=== PATIENT | male | born 1995 | race Hispanic/Latino ===

== ENCOUNTER 2018-11-09 15:00 | Emergency (ER) | payer OTHER ==
[~2018-11-09] VITALS: Ht 165.1 cm; Wt 67.3 kg
[2018-11-09] MEDS ORDERED: NAPR-837 PO (16:02)
[2018-11-09] MEDS ORDERED: CYCL10TA PO (16:07)
[2018-11-09 16:08] VITALS: BP 126/63
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
== END 2018-11-09 16:23 | disposition home or self-care (01) ==
LOC: M ED 15:00
DX: S93.401A Sprain of unspecified ligament of right ankle, initial encounter (principal); X50.9XXA Other and unspecified overexertion or strenuous movements or postures, initial encounter; Y92.89 Other specified places as the place of occurrence of the external cause; Y93.66 Activity, soccer; M25.562 Pain in left knee; G89.29 Other chronic pain

== ENCOUNTER 2019-02-03 13:13 | Emergency (ER) | payer OTHER ==
[~2019-02-03] VITALS: Ht 165.1 cm; Wt 66.4 kg
[2019-02-03 13:13] VITALS: BP 134/56
[~2019-02-03 13:13] MED LIST: CYCL10TA PO; NAPR-837 PO
== END 2019-02-03 15:25 | disposition left against medical advice (07) ==
LOC: M ED 13:13
DX: Z53.29 Procedure and treatment not carried out because of patient's decision for other reasons (principal)

== ENCOUNTER 2019-03-12 08:10 | Emergency (ER) | payer OTHER ==
[~2019-03-12] VITALS: Ht 165.1 cm; Wt 66.4 kg
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
[2019-03-12 09:57] VITALS: BP 137/63
== END 2019-03-12 09:48 | disposition home or self-care (01) ==
LOC: M ED 08:10
DX: S92.355A Nondisplaced fracture of fifth metatarsal bone, left foot, initial encounter for closed fracture (principal); X50.1XXA Overexertion from prolonged static or awkward postures, initial encounter; Y92.89 Other specified places as the place of occurrence of the external cause; Y93.9 Activity, unspecified; Y99.9 Unspecified external cause status

== ENCOUNTER 2019-03-19 08:06 | Emergency (ER) | payer OTHER ==
[~2019-03-19] VITALS: Ht 165.1 cm; Wt 61.8 kg
--- NOTE | 2019-03-19 08:58 | REP ---
Left foot four views: There is a nondisplaced fracture at the base of the fifth digit metatarsal. There is no dislocation. Mineralization and joint spaces are otherwise unremarkable. There are no calcifications or foreign bodies. Impression: Nondisplaced fracture at the base of the fifth digit metatarsal. Electronically Signed by Kalin Mendoza MD 03/19/2019 08:51 A
[2019-03-19 09:36] VITALS: BP 118/55
== END 2019-03-19 09:39 | disposition home or self-care (01) ==
LOC: M ED 08:06
DX: M79.9 Soft tissue disorder, unspecified (principal); S92.355A Nondisplaced fracture of fifth metatarsal bone, left foot, initial encounter for closed fracture; X58.XXXA Exposure to other specified factors, initial encounter; Y92.89 Other specified places as the place of occurrence of the external cause

== ENCOUNTER 2019-04-26 22:30 | Emergency (ER) | payer OTHER ==
[~2019-04-26] VITALS: Ht 165.1 cm; Wt 64.5 kg
[2019-04-26] MEDS ORDERED: BACITRACIN OINT 30GM TOP ONE (22:45)
[2019-04-26] MEDS ORDERED: NAPR-885 PO (22:48)
[2019-04-26] MEDS ORDERED: BACIOIN5 OP (22:48)
[2019-04-26] MEDS ORDERED: NAPROXEN 250 MG TAB PO ONE (23:00)
[2019-04-26 23:05] VITALS: BP 141/79
== END 2019-04-26 23:11 | disposition home or self-care (01) ==
LOC: M ED 22:30
DX: T24.092A Burn of unspecified degree of multiple sites of left lower limb, except ankle and foot, initial encounter (principal); T31.0 Burns involving less than 10% of body surface; Y92.89 Other specified places as the place of occurrence of the external cause; Y93.9 Activity, unspecified; G89.29 Other chronic pain; M54.9 Dorsalgia, unspecified

== ENCOUNTER 2019-06-10 19:17 | Emergency (ER) | payer OTHER ==
[~2019-06-10] VITALS: Ht 165.1 cm; Wt 66.8 kg
[~2019-06-10 19:17] MED LIST changes: +BACIOIN5 OP; +NAPR-885 PO
[2019-06-10 19:18] VITALS: BP 131/83
[2019-06-10] MEDS ORDERED: NORCO, ANEXSIA 5/325MG TABLET (HYDROcodone/ACETAMINOPHEN) PO ONE (20:15)
[2019-06-10] MEDS ORDERED: IBUPROFEN 800 MG TAB PO ONE (20:15)
[2019-06-10] MEDS ORDERED: ACETAMINOPHEN 500 MG TAB PO ONE (20:15)
[2019-06-10] MEDS ORDERED: NORCO 5/325MG TABLET (BULK FOR ED) PO ONE (20:45)
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
== END 2019-06-10 20:52 | disposition home or self-care (01) ==
LOC: M ED 19:17
DX: S62.306A Unspecified fracture of fifth metacarpal bone, right hand, initial encounter for closed fracture (principal); W00.9XXA Unspecified fall due to ice and snow, initial encounter; Y92.099 Unspecified place in other non-institutional residence as the place of occurrence of the external cause; Y93.K1 Activity, walking an animal; Y99.9 Unspecified external cause status; Z87.891 Personal history of nicotine dependence

== ENCOUNTER 2020-02-14 23:50 | Emergency (ER) | payer OTHER ==
[~2020-02-14] VITALS: Ht 165.1 cm; Wt 67.1 kg
[~2020-02-14 23:50] MED LIST changes: +CYCL-707 PO; -CYCL10TA PO
[2020-02-15] MEDS ORDERED: MORPHINE 4 MG/ML 1ML VIAL/SYRINGE (J2270) IV ONE (00:45)
[2020-02-15 01:31] VITALS: BP 162/76
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
--- NOTE | 2020-02-15 08:33 | REP ---
Clinical: Trauma . Comparison: None . Findings: The mediastinum and cardiac silhouette are stable and within normal limits for portable technique. The lung manuel are clear without acute consolidation, effusion, or pneumothorax. Skeletal structures are intact. Impression: No acute cardiopulmonary process appreciated. Electronically Signed by Ramiro Pace MD 02/15/2020 08:25 A
== END 2020-02-15 01:42 | disposition short-term general hospital (02) ==
LOC: M ED 23:50
DX: S00.83XA Contusion of other part of head, initial encounter (principal); S02.32XA Fracture of orbital floor, left side, initial encounter for closed fracture; S02.40DA Maxillary fracture, left side, initial encounter for closed fracture; H05.332 Deformity of left orbit due to trauma or surgery; Y04.8XXA Assault by other bodily force, initial encounter; Y92.9 Unspecified place or not applicable
CPT/HCPCS: 70450; 70486; 71045; 72125; 96374; 99284; J2270